=== PATIENT | male | born 1940 | race Caucasian/White ===

== ENCOUNTER → 2016-10-12 | Outpatient (CLI) | payer MEDICARE, BC ==
--- NOTE | 2016-10-12 15:37 | RAD ---
Examination: MRI of the right ankle and right foot HISTORY: History of pain, swelling for 3 weeks, recent fall COMPARISON: None available TECHNIQUE: Multiplanar, multisequence MR imaging of the right ankle and right foot were performed without contrast. FINDINGS: The attachment of the Achilles tendon to the calcaneus grossly appears intact. The alignment of the plantar fascial to inferior aspect of the calcaneus grossly appears intact The alignment of the ankle joint grossly appears unremarkable. The alignment of the tarsal joints, tarsometatarsal joints, tarsophalangeal joint, interphalangeal grossly appears unremarkable. There is no obvious acute fracture identified. The Lisfranc ligament is intact. Fat is present within the sinus tarsi. The attachment of the anterior tibiofibular ligament, posterior tibiofibular ligament, anterior talofibular ligament, posterior talofibular ligament are intact. The attachment of the peroneus brevis, peroneus longus tendons grossly appears unremarkable. The visualized flexor tendons and extensor tendons grossly appears intact. Mild degenerative changes identified in the tarsal joints and tarsometatarsal joints. Mild degenerative changes identified in the metatarsophalangeal joints. Metallic susceptibility artifact identified in the third, fourth, fifth toe regions. There is moderate amount of edema identified in the dorsum of the foot extending into the soft tissues of the lower leg surrounding the ankle, mostly in the subcutaneous tissue likely nonspecific edema or cellulitis. No focal fluid collection identified. IMPRESSION: 1. Moderate amount of edema identified in the dorsum of the foot extending into soft tissue the lower leg and ankle, predominantly in the subcutaneous tissue likely nonspecific edema or cellulitis. Correlate clinically. 2. No acute fracture visualized. Electronically signed by: Leonardo Rajput MD (10/12/2016 3:33 PM) [id number]
== END | disposition home or self-care (01) ==
LOC: MRI 12:57
PROVIDERS: ATTEND Nurse Practitioner Family
DX: M25.571 Pain in right ankle and joints of right foot (principal)
CPT/HCPCS: 73718; 73721